=== PATIENT | female | born 1965 | race Caucasian/White ===

== ENCOUNTER 2022-12-01 09:05 | Emergency (ER) | payer OTHER ==
[~2022-12-01] VITALS: Ht 165.1 cm; Wt 68.2 kg
[2022-12-01] MEDS ORDERED: DiphenhydrAMINE HCL 25 MG CAPSULE PO ONE (11:00)
[2022-12-01] MEDS ORDERED: PredniSONE 20 MG TABLET PO ONE (11:00)
[2022-12-01 11:06] VITALS: BP 112/66; PULSE 78; RESP 16; TEMP 97.7
[2022-12-01] MEDS ORDERED: PRED-554 PO (11:08)
[2022-12-01] MEDS ORDERED: DIPH25CA85 PO (11:09)
== END 2022-12-01 11:42 | disposition home or self-care (01) ==
LOC: EMS 09:11
DX: L25.9 Unspecified contact dermatitis, unspecified cause (principal); Z98.890 Other specified postprocedural states
CPT/HCPCS: 99283; J7512